=== PATIENT | male | born 1995 | race Caucasian/White ===

== ENCOUNTER 2017-05-18 21:12 | Emergency (ER) | payer MEDICAID ==
--- NOTE | 2017-05-18 22:15 | ED Physician Documentation ---
PD HPI UPPER EXT INJURY - Stated complaint Stated Complaint: RIGHT HAND INJURY - Chief complaint Chief Complaint: Ext Problem - History obtained from History obtained from: Patient - History of Present Illness Location: Right, Hand, Finger Where injury occurred: Work Timing - onset: How many hours ago (3) Timing - details: Abrupt onset Worsened by: Moving, Palpating Associated symptoms: Swelling, Discolored Contributing factors: No: Anticoagulated, Prior ortho surgery Similar symptoms before: Has not had sx before Recently seen: Not recently seen - Additonal information Additional information: Patient is a 21 year old male with no significant past medical history who is presenting to the emergency department for right thumb pain. 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 Patient states that he finished his shift before coming in for evaluation. Patient denies any other trauma at this time. Review of Systems Constitutional: reports: Reviewed and negative Eyes: reports: Reviewed and negative Ears: reports: Reviewed and negative Nose: reports: Reviewed and negative Throat: reports: Reviewed and negative Cardiac: denies: Chest pain / pressure, Palpitations Respiratory: reports: Reviewed and negative GI: denies: Nausea, Vomiting : reports: Reviewed and negative Skin: denies: Rash, Lesions, Abrasion (s) Musculoskeletal: reports: Extremity pain, Joint pain, Extremity swelling, Joint swelling Neurologic: reports: Focal weakness. denies: Numbness Immunocompromised: denies: Immunocompromised PD PAST MEDICAL HISTORY - Past Medical History Past Medical History: No - Past Surgical History Past Surgical History: No - Allergies Allergies/Adverse Reactions: Allergies Allergy/AdvReac Type Severity Reaction Status Date / Time cefprozil [From Cefzil] Allergy Unknown Verified 05/18/17 21:21 - Social History Does the pt smoke?: Yes Smoking Status: Current every day smoker Does the pt drink ETOH?: Yes Does the pt have substance abuse?: No Substance Use and Type: Marijuana PD ED PE NORMAL - Vitals Vital signs reviewed: Yes - General General: Alert and oriented X 3, No acute distress - HEENT HEENT: Atraumatic, PERRL - Cardiac Cardiac: RRR, No murmur - Respiratory Respiratory: No respiratory distress - Abdomen Abdomen: Non distended - Derm Derm: Warm and dry - Neuro Neuro: Alert and oriented X 3, No sensory deficit, Normal speech - Psych Psych: Normal mood, Normal affect PD ED PE EXPANDED - Extremities Extremities: Right hand (tenderness and swelling over right thenar eminence), Motor intact, Sensory intact, Vascular intact, Tendon intact. No: Decreased/ absent pulse Results - Vitals Vitals: Vital Signs - 24 hr 05/18/17 05/18/17 05/18/17 21:17 22:40 22:55 Temperature 36 C L 36.8 C 36.6 C Heart Rate 115 H 95 61 Respiratory 18 17 20 Rate Blood Pressure 156/83 H 126/81 H 138/84 H O2 Saturation 99 99 100 Oxygen O2 Source Room air - Rads (name of study) hand x-ray Radiology: Final report received, EMP read contemporaneously (non displaced fracture of first digit) Procedures - Splint (location) right Splint applied by: Tech Type of splint: Thumb spica Other: Patient tolerated well, No complications, Neurovascular intact, Good alignment PD MEDICAL DECISION MAKING - ED course Complexity details: reviewed old records, reviewed results, re-evaluated patient , considered differential, d/w patient ED course: Patient was seen and examined at bedside. Patient was sent for imaging. when patient returned the results were reviewed. Patient had a fractured thumb. Patient was placed in a thumb spica and was stable for discharge with outpatient orthopedic follow up. Departure - Departure Disposition: 01 Home, Self Care Clinical Impression: Thumb fracture Condition: Good Instructions: ED Fx Thumb Follow-Up: Xavier Keller MD [Provider Admit Priv/Credential] - Within 1 week Comments: Your symptoms today are being caused by a broken thumb. It is non displaced so it should heal over the next 4-6 weeks. You should keep it elevated and ice it 4-6 times a day. You should take tylenol 1000mg as needed for pain. You should follow up with Dr. Keller next week for further evaluation. You should return to the emergency department at any time for new, worsening or uncontrollable symptoms. Discharge Date/Time: 05/18/17 22:55
--- NOTE | 2017-05-18 22:21 | XRAY Preliminary Report ---
Exam: XR HAND 3 VIEW RT IMPRESSION: Oblique nondisplaced fracture of the first metacarpal shaft. There is soft tissue swellin g within the hand. [facility] SITE ID: [id number]
--- NOTE | 2017-05-18 22:34 | XRAY Report ---
EXAM: RIGHT HAND RADIOGRAPHY EXAM DATE: 05/18/2017 10:05 PM. CLINICAL HISTORY: Twisting injury of the thumb. COMPARISON: None. TECHNIQUE: 3 views. FINDINGS: Bones: There is a obliquely oriented nondisplaced fracture through the shaft of the first metacarpal. Joints: Normal. No subluxations. Soft Tissues: There is soft tissue swelling over the dorsum of the hand. IMPRESSION: Oblique nondisplaced fracture of the first metacarpal shaft. There is soft tissue swelling within the hand. [facility] Referring Provider Line: [phone] SITE ID: [id number]
[2017-05-18 22:56] VITALS: BP 138/84
== END 2017-05-18 22:55 | disposition home or self-care (01) ==
LOC: ED 21:12
DX: S62.244A Nondisplaced fracture of shaft of first metacarpal bone, right hand, initial encounter for closed fracture (principal); W31.89XA Contact with other specified machinery, initial encounter; Y99.0 Civilian activity done for income or pay; F17.200 Nicotine dependence, unspecified, uncomplicated
CPT/HCPCS: 29125; 99283

== ENCOUNTER 2020-08-17 09:41 | Outpatient (CLI) | payer SELFPAY | END 2020-08-17 09:42 | disposition home or self-care (01) | LOC: COV 09:41 | PROVIDERS: ATTEND Family Medicine | DX: R05 Cough (principal); M79.10 Myalgia, unspecified site; R09.81 Nasal congestion; J34.89 Other specified disorders of nose and nasal sinuses; Z20.822 Contact with and (suspected) exposure to COVID-19 ==

== ENCOUNTER 2020-12-22 11:07 | Outpatient (CLI) | payer MEDICAID, OTHER ==
--- NOTE | 2020-12-22 16:12 | XRAY Report ---
PROCEDURE: Lumbar Spine 2 View INDICATIONS: ACUTE LOW BACK PAIN TECHNIQUE: 3 views of the lumbar spine were acquired. COMPARISON: None. FINDINGS: Bones: 5 [id number] vertebrae are present. There is normal bony alignment. No vertebral body compression fractures. No suspicious bony lesions. Mild degenerative changes noted throughout the carol mbar spine. Soft tissues: Overlying bowel gas pattern is normal. No suspicious soft tissue calcifications. IMPRESSION: 1. Mild multilevel degenerative disc disease. 2. No fracture. No acute osseous lesion. If there is continued clinical concern for pathology, then M RI should be considered for further evaluation. Reviewed by: Saira Trujillo MD, PhD on 12/22/2020 4:11 PM PDT Approved by: Saira Trujillo MD, PhD on 12/22/2020 4:11 PM PDT Station ID: [id number]
== END 2020-12-22 23:59 | disposition home or self-care (01) ==
LOC: DI.N 11:07
PROVIDERS: ATTEND Nurse Practitioner
DX: M54.5 Low back pain (principal); M51.36 Other intervertebral disc degeneration, lumbar region